=== PATIENT | male | born 2000 | race Caucasian/White ===

== ENCOUNTER 2019-05-14 20:24 | Emergency (ER) ==
[2019-05-14] MEDS ORDERED: Ibuprofen 200 MG TAB ONE (21:07)
[2019-05-14] MEDS ORDERED: Acetaminophen 500 MG TAB ONE (21:07)
== END 2019-05-14 23:34 | disposition home or self-care (01) ==
LOC: ERS 20:24
DX: J11.1 Influenza due to unidentified influenza virus with other respiratory manifestations (principal)
CPT/HCPCS: 87081; 87430; 87804; 99283